=== PATIENT | male | born 1980 | race Two or more races ===

== ENCOUNTER → 2023-05-08 | Emergency (ER) | payer BC ==
[~2023-05-08] VITALS: Ht 172.7 cm; Wt 72.6 kg
[~2023-05-08] MED LIST: NASAL MIST126 ML
== END | disposition home or self-care (01) ==
LOC: ER 20:45
DX: S52.592A Other fractures of lower end of left radius, initial encounter for closed fracture (principal); X58.XXXA Exposure to other specified factors, initial encounter; Y93.89 Activity, other specified; Y92.89 Other specified places as the place of occurrence of the external cause; Y99.9 Unspecified external cause status; Z88.0 Allergy status to penicillin; Z91.018 Allergy to other foods